=== PATIENT | female | born 1985 | race Caucasian/White ===

== ENCOUNTER → 2017-07-17 | Outpatient (CLI) | payer OTHER ==
--- NOTE | 2017-07-17 14:31 | REP ---
PELVIC ULTRASOUND: Real-time sonographic evaluation of the pelvis is performed utilizing transabdominal and endovaginal technique. The bladder measures approximately 11.2 x 7.6 x 9.2 cm. The uterus measures 7.2 x 3.5 x 4.2 cm. Endometrial thickness is 7 mm. There appear to be several tiny calcifications along the posterior endometrium. Minimal endocervical fluid is seen. Right ovary measures 3.8 x 1.7 x 3.3 cm. The left ovary is enlarged measuring 5.8 x 3.7 x 5.0 cm. There is a cyst in the left ovary 5.3 x 2.7 x 4.4 cm. There is mild free fluid. There is no torsion, with blood flow seen in each ovary with duplex Doppler evaluation. IMPRESSION: Previously noted right adnexal cyst has resolved. There is relatively simple appearing left ovarian cyst with a maximum diameter of 5.3 cm. Mild free fluid. No torsion. Signed by Aman Victor MD 07/17/2017 05:21 P
== END ==
LOC: M RAD 11:06
PROVIDERS: ATTEND Obstetrics & Gynecology
DX: N83.202 Unspecified ovarian cyst, left side (principal); Z87.42 Personal history of other diseases of the female genital tract

== ENCOUNTER → 2018-10-01 | Outpatient (CLI) | payer OTHER | LOC: M RAD 10:36 | DX: Z36.89 Encounter for other specified antenatal screening (principal); Z3A.18 18 weeks gestation of pregnancy | CPT/HCPCS: 76811 ==

== ENCOUNTER 2019-02-28 07:13 | Inpatient (IN) | payer OTHER ==
[~2019-02-28] VITALS: Ht 157.5 cm; Wt 77.0 kg
[2019-02-28] VITALS (7 sets, daily range): BP systolic 112–138; BP diastolic 54–79
[~2019-02-28 07:13] MED LIST: FERR325T3 PO; PRENTAB55 PO
[2019-02-28] MEDS ORDERED: LACTATED RINGER'S 1000 ML IV STA (07:25)
[2019-02-28] MEDS ORDERED: BICITRA 30ML SOLN UDC PO ONE (07:30)
[2019-02-28] MEDS ORDERED: TUMS500C PO (07:35)
[2019-02-28 08:36] LABS: HEMATOCRIT 31.3 % (36.0-47.0); HEMOGLOBIN 10.2 g/dl (12.0-15.5); MEAN CORPUSCULAR HEMOGLOBIN 31.1 pg (27.0-33.0); MEAN CORPUSCULAR HGB CONC 32.6 g/dl (32.0-36.5); MEAN CORPUSCULAR VOLUME 95.4 fl (80.0-96.0); PLATELET COUNT, AUTOMATED 139 10^3/uL (150-450); RED BLOOD COUNT 3.28 10^6/uL (4.00-5.40); WHITE BLOOD COUNT 6.8 10^3/uL (4.0-10.0)
[2019-02-28] MEDS ORDERED: ONDANSETRON 4MG/2ML VIAL (J2405) IV PRN ×3 (09:53→12:00)
[2019-02-28] MEDS ORDERED: NALOXONE INJ 0.4 MG/1 ML VIAL (J2310) IV PRN ×2 (09:53)
[2019-02-28] MEDS ORDERED: NALBUPHINE HCL 10 MG/ML AMP (J2300) IV PRN ×2 (09:53→12:00)
[2019-02-28] MEDS ORDERED: diphenhydrAMINE INJ 50MG/ML VIAL (J1200) IV PRN (09:53)
[2019-02-28] MEDS ORDERED: METOCLOPRAMIDE INJ 10MG/2ML VIAL (J2765) IV PRN (09:53)
[2019-02-28] MEDS ORDERED: ONDANSETRON 4MG/2ML VIAL (J2405) As Ordered ONE (10:03)
[2019-02-28] MEDS ORDERED: OXYTOCIN INJ 10 UNITS/ML VIAL (J2590) As Ordered ONE (10:03)
[2019-02-28] MEDS ORDERED: BUPIVACAINE/DEXTROSE 0.75% 2 ML AMP As Ordered ONE (10:03)
[2019-02-28] MEDS ORDERED: MORPHINE PRES-FREE INJ 10 MG/10 ML VIAL (J2274) As Ordered ONE (10:03)
[2019-02-28] MEDS ORDERED: KETOROLAC 60 MG/2 ML VIAL (J1885) As Ordered ONE (10:03)
[2019-02-28] MEDS ORDERED: PHENYLephrine HCL 500 MCG/5 ML (100MCG/ML) SYRINGE (J2370) As Ordered ONE (10:03)
[2019-02-28] MEDS ORDERED: dexameTHASONE 4 MG/ML 1ML VIAL (J1100) As Ordered ONE (10:03)
[2019-02-28] MEDS ORDERED: ePHEDrine SULFATE 25 MG/5 ML(5MG/ML) SYRINGE As Ordered ONE (10:03)
[2019-02-28] MEDS ORDERED: MIDAZOLAM INJ 2 MG/2 ML VIAL (J2250) As Ordered ONE (10:31)
[2019-02-28] MEDS ORDERED: ACETAMINOPHEN 1000MG 100ML IV BTL (OFIRMEV) (J0131 PER 10MG) As Ordered ONE (10:38)
[2019-02-28] MEDS ORDERED: KETAMINE HCL 200 MG/20 ML VIAL As Ordered ONE (10:50)
[2019-02-28] MEDS ORDERED: OXYTOCIN DRIP 30 UNITS in APPROPRIATE DILUENT 1 EA IV SCH (11:12)
[2019-02-28] MEDS ORDERED: RHOGAM 300 MCG (1500 IU) INJ (J2790) IM SCH (11:15)
[2019-02-28] MEDS ORDERED: MEASLES,MUMPS,RUBELLA VACCINE INJ (MMR-II) (90707) SC SCH (11:15)
[2019-02-28] MEDS ORDERED: DOCUSATE SODIUM 100 MG CAP PO PRN (11:15)
[2019-02-28] MEDS ORDERED: IBUPROFEN 800 MG TAB PO PRN (11:15)
[2019-02-28] MEDS ORDERED: OXYTOCIN 30 UNITS IN 0.9% NaCl 500ML IV BAG (J2590) As Ordered ONE (11:28)
[2019-02-28] MEDS ORDERED: fentaNYL 100 MCG/2 ML INJECTION (J3010) IV PRN (12:00)
[2019-02-28] MEDS ORDERED: LR 1,000 ML IV SCH ×2 (12:00)
[2019-02-28] MEDS ORDERED: miSOPROStol 200 MCG TAB (S0191) PR ONE (12:00)
[2019-02-28] MEDS ORDERED: MORPHINE 10 MG/ML 1ML VIAL (J2270) IV PRN (12:00)
--- NOTE | 2019-02-28 13:08 | RO ---
DATE OF PROCEDURE: 02/28/2019 PREPROCEDURE DIAGNOSIS: History of section, no desire for trial of labor after section (TOLAC). POSTPROCEDURE DIAGNOSIS: History of section, no desire for trial of labor after section (TOLAC). PROCEDURE: Repeat low transverse section. SURGEON: Dr. Umberto Last DRY JANITOR: Dr. Latasha Douglas ANESTHESIA: Spinal anesthesia. ANTIBIOTICS: 2 grams Ancef before incision OPERATIVE FINDINGS: Delivery of a viable found in cephalic presentation. The baby had scores of 9 and 9 and a weight of 3770 grams or 8 pounds 5 ounces. FLUIDS: 1200 mL of lactated Ringer ESTIMATED BLOOD LOSS: 700 mL intraoperatively and an additional 500 mL of blood and clots on vaginal exam at conclusion. 1200ml total. COMPLICATIONS: None. DESCRIPTION OF PROCEDURE: The risks, benefits, indications, and alternatives of the procedure were reviewed with the patient, and informed consent was obtained. The patient was taken to the operating room where spinal anesthesia was obtained without difficulty. She was then prepped and draped in the usual sterile fashion in the dorsal supine position. A anna catheter had been placed by nursing staff. A surgical time-out was then performed in which the patient's identity and planned procedure were verified with the operative team. A Pfannenstiel skin incision was then made with a scalpel and carried through to the underlying layer of fascia using the Bovie electrocautery. The fascia was incised in the midline and the incision was extended laterally with Cervantes scissors. The superior aspect of the fascial incision was grasped with Shanda clamps, elevated, and the underlying rectus muscles were dissected off with a scalpel. Attention was then turned to the inferior aspect of this incision which, in a similar fashion, was grasped, tented up with Shanda clamps, and the rectus muscles were dissected off with Cervantes scissors. The rectus muscles were then at the midline. The peritoneum was identified and entered digitally. The peritoneal incision was then extended horizontally and superiorly with good visualization of the bladder. A bladder blade was then inserted into the abdomen. The vesicouterine peritoneum was then identified and entered sharply with the scalpel. This incision was then extended laterally and a bladder flap was created digitally. Next, the lower uterine segment was incised in transverse fashion with the scalpel. The uterine incision was then extended manually. The amniotic sac was then artificially ruptured and was productive of clear fluid. The was found in cephalic presentation. The infant's head was delivered atraumatically through the hysterotomy site without difficulty with aid from a Kiwi vacuum extractor. Once the head was delivered, the Kiwi vacuum was removed and discarded off the field. The remainder of the body delivered without difficulty. The 's nose and mouth were suctioned with the bulb syringe, and the cord was doubly clamped and cut. The cried vigorously with delivery and was then handed off to the awaiting pediatricians. The placenta was then removed manually. The uterus was then exteriorized and cleared of all clot and debris. There was initial brisk bleeding from the placental bed, which was made hemostatic after the uterine incision was repaired. The uterine incision was repaired with #0 Monocryl suture in a running locked fashion. A second layer #0 Monocryl was then used to imbricate the hysterotomy site in a horizontal fashion. Inspection of the hysterotomy revealed excellent hemostasis. The posterior cul-de-sac was then irrigated to good effect. The uterus was then returned to the abdomen. The hysterotomy was again inspected and found to be hemostatic across the entire length. The paracolic gutters were then irrigated and cleared of all clots and debris. The bladder blade was removed from the abdomen. The peritoneum was then closed with a running suture of #3-0 Vicryl. The fascia was then closed with #0 Vicryl suture in a running fashion. The subcutaneous fat was then closed with #3-0 Vicryl suture in a continuous fashion. The skin was then closed with #4-0 Monocryl suture in a subcuticular fashion. The incision was then dressed with Steri-Strips, and a pressure dressing was applied. At the completion of the case, a bimanual exam was performed, which revealed initially a boggy uterus and about 500 mL of blood and clot were expelled from the uterus with massage. Once the uterus was firmed with manual massage and clots were expelled, Cytotec 1000 mcg was then inserted into the patient's rectum. The fundus then firmed and bleeding was minimal. The patient tolerated the procedure well. Sponge, lap, instrument, and needle counts were correct times three. The patient was taken to the recovery room in stable condition. [facility] HOSPITALPatrice
[2019-02-28] MEDS: KETOROLAC 30 MG/ML VIAL (J1885) IV SCH ×2 (14:01→18:33)
[2019-03-01] MEDS: KETOROLAC 30 MG/ML VIAL (J1885) IV SCH ×2 (01:32→06:44)
[2019-03-01 02:06] VITALS: BP 110/55
[2019-03-01] MEDS: PERCOCET 5MG/325MG TAB PO PRN ×3 (03:54→17:35)
[2019-03-01 06:04] VITALS: BP 113/55
[2019-03-01 06:48] LABS: HEMATOCRIT 22.2 % (36.0-47.0); MEAN CORPUSCULAR HEMOGLOBIN 30.6 pg (27.0-33.0); MEAN CORPUSCULAR HGB CONC 32.4 g/dl (32.0-36.5); MEAN CORPUSCULAR VOLUME 94.5 fl (80.0-96.0); PLATELET COUNT, AUTOMATED 117 10^3/uL (150-450); RED BLOOD COUNT 2.35 10^6/uL (4.00-5.40); WHITE BLOOD COUNT 7.2 10^3/uL (4.0-10.0)
[2019-03-01 06:51] LABS: HEMOGLOBIN 7.2 g/dl (12.0-15.5)
[2019-03-01] MEDS ORDERED: ACETAMINOPHEN 325 MG TAB PO ONE (07:45)
--- NOTE | 2019-03-01 07:52 | IPNPDOC ---
Progress Note Date of Service: March 01, 2019 Progress Note Latasha is a 33 yo G6 now P3 who is POD#1 s/p uncomplicated scheduled RLTCS yesterday who is currently recovering on the avila. No acute events overnight. Latasha reports feeling very tired this morning. She has been ambulating however without difficulty. She just had her anna catheter removed and has yet to void. She has minimal pain at her incision and her pain medications are helping her well. She denies any nausea/vomiting and is tolerating a regular diet without issues. She has minimal lochia. Vitals - VSS, afebrile, normotensive, non tachycardic General - AAOX3, sitting up in bed, pale appearing, but NAD Abdomen - Fundus firm at U-2. No fundal tenderness. Bandage removed from incision. Incision clean/dry/intact. Steri strips in place. No tenderness to palpation. Extremities - Trace lower extremity edema. UO - excellent, >100ml/hr Labs: Pre op H/H 10.2/31.3 ---> 7.2/22.2 post op H/H this AM. Overall Latasha is doing well, however she has symptomatic anemia, which is not unexpected given her low starting H/H and blood loss from surgery. I recommended transfusion of 1U PRBCs. Patient counseled on all risks/benefits of transfusion and agrees to proceed. Consent form signed. Will given benadryl and tylenol before transfusion. Otherwise continue routine post operative care. Anticipate discharge home tomorrow. Braeden Last, VS, I&O, 24H, Nyasia Vital Signs/I&O Vital Signs Date Time Temp Pulse Resp B/P (MAP) Pulse Ox O2 Delivery O2 Flow Rate FiO2 03/01/19 06:04 98.8 80 17 113/55 (74) 98 I&O- Last 24 Hours up to 6 AM 03/01/19 06:00 Intake Total 2680 ml Output Total 2050 ml Balance 630 ml Laboratory Data 24H LABS Laboratory Tests 2 02/28/19 07:49: Nucleated Red Blood Cells % (auto) 0.0 02/28/19 08:03: Syphilis Serology NONREACTIVE 03/01/19 06:32: Nucleated Red Blood Cells % (auto) 0.0 CBC/BMP Laboratory Tests 02/28/19 07:49 Red Blood Count 3.28 L, Mean Corpuscular Volume 95.4, Mean Corpuscular Hemoglobin 31.1, Mean Corpuscular Hemoglobin Concent 32.6, Red Cell Distribution Width 15.0 H 03/01/19 06:32 Red Blood Count 2.35 L, Mean Corpuscular Volume 94.5, Mean Corpuscular Hemoglobin 30.6, Mean Corpuscular Hemoglobin Concent 32.4, Red Cell Distribution Width 15.2 H BRAEDEN LAST. DO March 01, 2019 07:52
[2019-03-01] MEDS ORDERED: diphenhydrAMINE 25 MG CAP PO ONE (08:00)
[2019-03-01] MEDS: PRENATAL VITAMINS CHEWABLE TABLET PO SCH (08:10)
[2019-03-01 14:00] VITALS: BP 114/65
[2019-03-01] MEDS: IBUPROFEN 800 MG TAB PO SCH ×2 (14:43→22:55)
[2019-03-01 18:04] VITALS: BP 120/67
[2019-03-01 22:14] VITALS: BP 111/63
[2019-03-02] MEDS: PERCOCET 5MG/325MG TAB PO PRN ×3 (00:19→11:47)
[2019-03-02 02:14] VITALS: BP 107/65
[2019-03-02] MEDS: IBUPROFEN 800 MG TAB PO SCH (06:01)
[2019-03-02 06:20] VITALS: BP 115/73
--- NOTE | 2019-03-02 07:32 | DS.PDOC ---
Discharge Summary General Date of Admission February 28, 2019 at 07:13 Date of Discharge March 02, 2019 Discharge Summary HOSPITAL COURSE: Ms. Cuevas is a 33 yo G6 now P3 who underwent an uncomplicated scheduled RLTCS on 28Feb2019 due to a history of a prior c section and no desire for TOLAC. She received 1U PRBCs on POD#1 for symptomatic anemia with improvement of symptoms. Her course has otherwise been u nremarkable. On her day of discharge she met all appropriate discharge criteria. She was ambulating, voiding, tolerating a regular diet, had minimal lochia, and had minimal pain that was controlled with PO pain medications. DISCHARGE MEDICATIONS: Please see below. ALLERGIES: Please see below. PHYSICAL EXAMINATION ON DISCHARGE: VITAL SIGNS: Please see below. GENERAL: AAOX3, sitting up in bed, NAD ABDOMINAL EXAMINATION: Fundus firm at U-2. No fundal tenderness. Incision clean/dry/intact. Steri strips in place. No tenderness to palpation. EXTREMITIES: No edema PSYCHIATRIC EXAMINATION: Affect appropriate ACTIVITY: Pelvic rest for 6 weeks. No lifting >10pounds for 6 weeks. DIET: Regular DISCHARGE PLAN: Discharge home on 02Mar2019 DISPOSITION: DC home. DISCHARGE INSTRUCTIONS: 1. Pelvic rest for 6 weeks. 2. No heavy lifting. 3. incision check in two weeks ITEMS TO FOLLOWUP ON ON OUTPATIENT: 1. Incision check in 2 weeks DISCHARGE CONDITION: Stable. TIME SPENT ON DISCHARGE: Greater than 20 minutes. Braeden Last DO Vital Signs/I&Os Vital Signs Date Time Temp Pulse Resp B/P (MAP) Pulse Ox O2 Delivery O2 Flow Rate FiO2 03/02/19 06:20 99.0 94 18 115/73 (87) 98 I&O- Last 24 Hours up to 6 AM 03/02/19 06:00 Intake Total 480 ml Output Total 1275 ml Balance -795 ml Discharge Medications Scheduled Calcium Carbonate (Tums) 200 Mg Tab.chew, 2 TAB PO QID for cough and congestion, (Reported) Ferrous Sulfate (Ferrous Sulfate) 325 Mg Tablet.dr, 325 MG PO DAILY, (Reported) Ppp410/Iron Fum/Folic/Docusate ( 19 Tablet) 1 Each Tablet, 1 TAB PO DAILY, (Reported) Allergies Coded Allergies: No Known Allergies (Unverified , 02/21/19) BRAEDEN LAST DO March 02, 2019 07:32
[2019-03-02 08:25] LABS: HEMATOCRIT 26.6 % (36.0-47.0); HEMOGLOBIN 8.4 g/dl (12.0-15.5); MEAN CORPUSCULAR HEMOGLOBIN 31.1 pg (27.0-33.0); MEAN CORPUSCULAR HGB CONC 31.6 g/dl (32.0-36.5); MEAN CORPUSCULAR VOLUME 98.5 fl (80.0-96.0); PLATELET COUNT, AUTOMATED 134 10^3/uL (150-450); WHITE BLOOD COUNT 6.5 10^3/uL (4.0-10.0)
[2019-03-02] MEDS: PRENATAL VITAMINS CHEWABLE TABLET PO SCH (10:13)
[2019-03-02] MEDS ORDERED: IBUP-1114 PO (11:21)
[2019-03-02] MEDS ORDERED: OXYC1TAB23 PO ×2 (11:23→11:24)
[2019-03-02] MEDS ORDERED: COLA100C5 PO (11:26)
== END 2019-03-02 13:45 | disposition home or self-care (01) | DRG 773 ==
LOC: M LDI 07:13 → M OBS 13:20
PROVIDERS: ADMIT Obstetrics & Gynecology; ATTEND Obstetrics & Gynecology
PROC: 10D00Z1 Extraction of Products of Conception, Low, Open Approach (ICD-10-PCS; principal; 2019-02-28 09:30)
DX: O34.211 Maternal care for low transverse scar from previous cesarean delivery (principal); Z37.0 Single live birth; Z3A.39 39 weeks gestation of pregnancy

== ENCOUNTER 2019-03-04 15:30 | Inpatient (IN) | payer OTHER ==
[2019-03-04] VITALS (13 sets, daily range): BP systolic 104–172; BP diastolic 60–91
[~2019-03-04] VITALS: Ht 157.5 cm; Wt 70.7 kg
[~2019-03-04 15:30] MED LIST changes: +COLA100C5 PO; +IBUP-1114 PO; +OXYC1TAB23 PO; +TUMS500C PO
[2019-03-04] MEDS ORDERED: MIRA3350 PO (16:00)
[2019-03-04] MEDS ORDERED: LR 1,000 ML IV SCH (16:20)
[2019-03-04] MEDS ORDERED: CALCIUM GLUCONATE 1,000 MG in D5W MINI-BAG PLUS 100 ML IV PRN (16:30)
[2019-03-04] MEDS ORDERED: MAG Sulf (L&D) 4 GM/100 ML 4 GM in APPROPRIATE DILUENT 1 EA IV ONE (17:00)
[2019-03-04] MEDS: MAG Sulf (OBGYN) 20GM/500ML 20,000 MG in APPROPRIATE DILUENT 1 EA IV SCH (17:23)
[2019-03-04 17:51] LABS: HEMATOCRIT 27.2 % (36.0-47.0); HEMOGLOBIN 8.9 g/dl (12.0-15.5); MEAN CORPUSCULAR HEMOGLOBIN 31.4 pg (27.0-33.0); MEAN CORPUSCULAR HGB CONC 32.7 g/dl (32.0-36.5); MEAN CORPUSCULAR VOLUME 96.1 fl (80.0-96.0); PLATELET COUNT, AUTOMATED 205 10^3/uL (150-450); RED BLOOD COUNT 2.83 10^6/uL (4.00-5.40)
[2019-03-04 18:18] LABS: ALT/SGPT 38 U/L (12-78); BILIRUBIN,TOTAL 0.6 MG/DL (0.2-1.0); CREATININE FOR GFR 0.63 MG/DL (0.55-1.30); GLOMERULAR FILTRATION RATE > 60.0 (>60); LDH LACTATE DEHYDROGENASE 392 U/L (84-246); URIC ACID 6.3 MG/DL (2.6-6.0)
[2019-03-05] VITALS (17 sets, daily range): BP systolic 99–144; BP diastolic 61–93
[2019-03-05] MEDS ORDERED: ACETAMINOPHEN TAB 650MG DOSE (2X325MG) PO PRN (00:30)
[2019-03-05] MEDS: IBUPROFEN 800 MG TAB PO PRN ×2 (00:39→17:52)
[2019-03-05] MEDS: MAG Sulf (OBGYN) 20GM/500ML 20,000 MG in APPROPRIATE DILUENT 1 EA IV SCH (01:36)
--- NOTE | 2019-03-05 07:51 | HPEPDOC ---
Obstetrical History & Physical General Date of Admission March 04, 2019 at 16:16 Past Medical History Allergies Coded Allergies: No Known Allergies (Unverified , 02/21/19) Medications Scheduled Ferrous Sulfate (Ferrous Sulfate) 325 Mg Tablet.dr, 325 MG PO DAILY Ibuprofen (Ibuprofen) 400 Mg Tablet, 800 MG PO Q8H Dpf749/Iron Fum/Folic/Docusate ( 19 Tablet) 1 Each Tablet, 1 TAB PO DAILY Polyethylene Glycol 3350 (Miralax) 119 Gm Powder, 1 DOSE PO DAILY for constipation dissolve in water Scheduled PRN Docusate Sodium (Colace) 100 Mg Capsule, 100 MG PO QHSP PRN for CONSTIPATION Oxycodone HCl/Acetaminophen (Oxycodone-Acetaminophen 5-325) 1 Each Tablet, 1 TAB PO Q6HP PRN for MILD PAIN (PS 1-4) Physical Examination Physical Examination GENERAL: Alert and oriented times three. BREAST: . ABDOMEN: Gravid and non-tender to touch. FETUS: Is vertex (VTX) by sterile vaginal examination (SVE), fetus is vertex (VTX) by Darryl. HEART RATE: Regular rate and rhythm. LUNGS: Clear to auscultation (CTA). EXTREMITIES: No edema. No clonus. Deep tendon reflexes (DTRs) + . Vital Signs/I&O Vital Signs Date Time Temp Pulse Resp B/P (MAP) Pulse Ox O2 Delivery O2 Flow Rate FiO2 03/05/19 04:47 57 14 122/75 (91) 03/05/19 03:47 97.8 03/04/19 18:27 98 I&O- Last 24 Hours up to 6 AM 03/05/19 06:00 Intake Total 2419 ml Output Total 4200 ml Balance -1781 ml Laboratory Data 24H LABS Laboratory Tests 2 03/04/19 16:38: Fibrinogen 424, Glomerular Filtration Rate > 60.0, Creatinine 0.63, Aspartate Amino Transf (AST/SGOT) 45H, Alanine Aminotransferase (ALT/SGPT) 38, Lactate Dehydrogenase 392H, Total Bilirubin 0.6, Uric Acid 6.3H 03/04/19 17:39: Nucleated Red Blood Cells % (auto) 0.0 CBC/BMP Laboratory Tests 03/04/19 16:38 Aspartate Amino Transf (AST/SGOT) 45 H, Alanine Aminotransferase (ALT/SGPT) 38, Lactate Dehydrogenase 392 H, Total Bilirubin 0.6, Uric Acid 6.3 H 03/04/19 17:39 Red Blood Count 2.83 L, Mean Corpuscular Volume 96.1 H, Mean Corpuscular Hemogl obin 31.4, Mean Corpuscular Hemoglobin Concent 32.7, Red Cell Distribution Width 15.2 H Assessment/Plan Assessment H&P from yesterday. It was placed on accident on another pt's chart which was open. Sessions MD Obstetrical History & Physical Obstetrical History & Physical General Date of Admission History of Present Illness 4 days PP, came in for BP check due to feeling like she did when dx'd with PP Pre-E 6 days after her second baby. Malaise, mild-mod CHÁVEZ, no vision or upper abd pain. No abnl VB or fevers. Had a ERCS 4 days ago. BP's in clinic were 167/84 and 167/79 after 20 min. Care Care: Good Care Past Medical History Past Medical History Past Obstetrical History : Past Obstetrical History: Multigravida Type of Delivery: Spontaneous Vaginal Del. (x1) Past Medical History Medical History denies Surgical History: section (x2) Family History Significant Family History: No pertinent family hx Social History Marital Status: Family situation: Spouse/partner home Psychosocial History: No pertinent psych hx * Smoker: non-smoker Alcohol: Denies Drugs: denies Abuse Violence Screening Have you been hit/kicked/slapp: No Have you been sexually assault: No Allergies Coded Allergies: No Known Drug Allergies (Verified Allergy, Unknown, 01/18/19) Medications Scheduled Nitrofurantoin Monohyd/M-Cryst (Macrobid 100 mg Capsule) 100 Mg Capsule, 100 MG PO QHS UNTIL 36 WEEKS GESTATION FOR UTI SUPPRESSION No.137/Iron/Folic Acd ( Vitamin Tablet) 1 Tab Tab, 1 TAB PO DAILY Physical Examination Physical Examination Physical Examination GENERAL: Alert and oriented times three. NAD BREAST: Nursing ABDOMEN: Gravid and non-tender to touch. Inc CDI LOWER EXTREMITIES: Mod edema. No clonus. Deep tendon reflexes (DTRs) 2+ Assessment/Plan Assessment/Plan Assessment 4 days postop, PP pre-E Plan Admit and orient. Mag Sulfate 4/2 Labs CBC, Pre-E profile, Fibrinogen Diet: reg Maintain LR at total 125 mL/hr. Reevaluate after 12 hrs Mag, will likely need 24 hrs. Rpt labs if admit labs are abnl SESSIONSASHKAN MD March 04, 2019 16:52 Plan Admit and orient. Critical Care Nurse Specialist and consent. Diet: . Group B Streptococcus (GBS) [negative]. Labs and intravenous (IV) per unit protocol. Counseled on Pitocin and induction of labor (IOL). Lactated Ringers (LR): Bolus mL, then at mL/hr. Anticipate [normal spontaneous delivery ()]. C-S as appropriate. SESSIONS,ASHKAN Alfredo MD March 05, 2019 07:51
--- NOTE | 2019-03-05 08:13 | IPNPDOC ---
Text Note Date of Service The patient was seen on 03/05/19. NOTE Off Mag Sulfate now for 2 hours due to concerns from the RN of diminishing br eath sounds and absent DTR's. Had received 12 hours of mag at that time. Her UO had been <300/hr and her vitals had been normal throughout the night. CHÁVEZ is gone and pt now states that she is feeling 100% better than she did yesterday pre-Mag sulfate. Labs noted from yesterday, repeat labs now pending. Of note, today states she has bene having several panic attacks a day since delivery and has some concerns about bonding with the baby. No HI/SI at all. Nl appetite however, and able to sleep when given the opportunity. Has been on antidepressants in the past and would like to start these again, although she knows they sometimes come with side fx. Will start low-dose Zoloft. Sessions A-FIB/JOSHUA A-FIB History Current/History of A-Fib/PAF?: No VS,Fishbone, I+O VS, Fishbone, I+O Laboratory Tests 03/04/19 16:38 Aspartate Amino Transf (AST/SGOT) 45 H, Alanine Aminotransferase (ALT/SGPT) 38, Lactate Dehydrogenase 392 H, Total Bilirubin 0.6, Uric Acid 6.3 H 03/04/19 17:39 Red Blood Count 2.83 L, Mean Corpuscular Volume 96.1 H, Mean Corpuscular Hemoglobin 31.4, Mean Corpuscular Hemoglobin Concent 32.7, Red Cell Distribution Width 15.2 H Vital Signs Date Time Temp Pulse Resp B/P (MAP) Pulse Ox O2 Delivery O2 Flow Rate FiO2 03/05/19 04:47 57 14 122/75 (91) 03/05/19 03:47 97.8 03/04/19 18:27 98 I&O- Last 24 Hours up to 6 AM 03/05/19 06:00 Intake Total 2419 ml Output Total 4200 ml Balance -1781 ml SESSIONS,ASHKAN Alfredo MD March 05, 2019 08:13
[2019-03-05 08:19] LABS: HEMATOCRIT 26.3 % (36.0-47.0); HEMOGLOBIN 8.6 g/dl (12.0-15.5); MEAN CORPUSCULAR HEMOGLOBIN 31.6 pg (27.0-33.0); MEAN CORPUSCULAR HGB CONC 32.7 g/dl (32.0-36.5); MEAN CORPUSCULAR VOLUME 96.7 fl (80.0-96.0); PLATELET COUNT, AUTOMATED 192 10^3/uL (150-450); RED BLOOD COUNT 2.72 10^6/uL (4.00-5.40); WHITE BLOOD COUNT 4.6 10^3/uL (4.0-10.0)
[2019-03-05 08:44] LABS: ALT/SGPT 44 U/L (12-78); BILIRUBIN,TOTAL 0.6 MG/DL (0.2-1.0); CREATININE FOR GFR 0.62 MG/DL (0.55-1.30); GLOMERULAR FILTRATION RATE > 60.0 (>60); LDH LACTATE DEHYDROGENASE 363 U/L (84-246); URIC ACID 6.3 MG/DL (2.6-6.0)
[2019-03-05] MEDS: SERTRALINE HCL 25 MG TABLET PO SCH (09:50)
[2019-03-05] MEDS: DOCUSATE SODIUM 100 MG CAP PO SCH ×2 (09:50→20:44)
[2019-03-06 02:56] VITALS: BP 161/75
[2019-03-06 02:59] VITALS: BP 141/71
[2019-03-06] MEDS: IBUPROFEN 800 MG TAB PO PRN (03:01)
[2019-03-06 05:37] VITALS: BP 140/80
[2019-03-06 06:26] LABS: HEMATOCRIT 26.4 % (36.0-47.0); HEMOGLOBIN 8.4 g/dl (12.0-15.5); MEAN CORPUSCULAR HEMOGLOBIN 30.9 pg (27.0-33.0); MEAN CORPUSCULAR HGB CONC 31.8 g/dl (32.0-36.5); MEAN CORPUSCULAR VOLUME 97.1 fl (80.0-96.0); PLATELET COUNT, AUTOMATED 186 10^3/uL (150-450); RED BLOOD COUNT 2.72 10^6/uL (4.00-5.40)
[2019-03-06 06:58] LABS: ALBUMIN 2.5 GM/DL (3.2-5.2); ALT/SGPT 29 U/L (12-78); BILIRUBIN,TOTAL 0.5 MG/DL (0.2-1.0); BLOOD UREA NITROGEN 8 MG/DL (7-18); CALCIUM LEVEL 7.7 MG/DL (8.5-10.1); CARBON DIOXIDE LEVEL 26 MEQ/L (21-32); CHLORIDE LEVEL 111 MEQ/L (98-107); CREATININE FOR GFR 0.63 MG/DL (0.55-1.30); GLOMERULAR FILTRATION RATE > 60.0 (>60); GLUCOSE, FASTING 90 MG/DL (70-100); LDH LACTATE DEHYDROGENASE 354 U/L (84-246); SODIUM LEVEL 143 MEQ/L (136-145); TOTAL PROTEIN 5.1 GM/DL (6.4-8.2); URIC ACID 5.2 MG/DL (2.6-6.0)
--- NOTE | 2019-03-06 07:31 | NUR ---
[facility] Progress Note S: Latasha is now PP/POD 6 s/p pre-eclampsia; with readmission and receipt of 12 hours mag sulfate. Her mag has been off >24 hours. She reports feeling well this am. She denies headache, epigastric/RUQ pain, N/V, or visual changes. Pain well controlled with PRN analgesia. Up ad niya. Excellent urine output. O: VS-normo to mild range BP/afebrile GEN: A&Ox3, NAD PUL: CTAB CV: RRR BREAST: filling; soft; nipples are intact ABD: incision well approximated w/ steri strips; soft; + BS UTERUS: NML involution EXT: neg homans, trace edema bilaterally Labs: PLT 186, AST 23; ALT 29; Creat 0.63 A/P: PP/POD 6 with pre-eclampsia s/p 12 hours of mag sulfate; labs all trending down; normotensive to mild range BP's; No sx. Also some reported depressive sx to Dr. Ndiaye yesterday but denies this today. Will dc home this am with f/u with Dr. Ndiaye in 48 hours for BP reassessment/mood reassessment. She has PP meds and additionally, I rx'd zoloft to [facility] outpatient pharmacy. Extensive review of warning signs and return precautions. Pt reports understanding w/o questions/concerns.
[2019-03-06] MEDS ORDERED: SERT25TA88 PO (07:34)
[2019-03-06] MEDS ORDERED: ACET1TAB55 PO (07:34)
[2019-03-06] MEDS ORDERED: IBUP80TA PO (07:34)
[2019-03-06] MEDS: SERTRALINE HCL 25 MG TABLET PO SCH (08:00)
[2019-03-06] MEDS: DOCUSATE SODIUM 100 MG CAP PO SCH (08:00)
== END 2019-03-06 08:45 | disposition home or self-care (01) | DRG 776 ==
LOC: M LDO 15:30 → M LDI 16:16 → M OBS 03-05 19:31
PROVIDERS: ADMIT Obstetrics & Gynecology; ATTEND Obstetrics & Gynecology
DX: O14.95 Unspecified pre-eclampsia, complicating the puerperium (principal)